=== PATIENT | male | born 1975 | race Caucasian/White ===

== ENCOUNTER 2017-09-10 21:04 | Emergency (ER) | payer OTHER ==
[~2017-09-10] VITALS: Ht 185.4 cm; Wt 90.7 kg
[~2017-09-10 21:04] MED LIST: LIDOCAINE VISC100 M1 MM; NOHOMEMEDICATIONS; ZPAK PO
[2017-09-10] MEDS ORDERED: HYDROCODONE-AP1 EAC6 PO (22:13)
[2017-09-10] MEDS ORDERED: KEFLEX500 M1 PO (22:13)
[2017-09-10 23:09] VITALS: BP 143/86
== END 2017-09-10 23:10 | disposition home or self-care (01) ==
LOC: ER 21:04
DX: S62.634B Displaced fracture of distal phalanx of right ring finger, initial encounter for open fracture (principal); F17.210 Nicotine dependence, cigarettes, uncomplicated; Z23 Encounter for immunization; W28.XXXA Contact with powered lawn mower, initial encounter; Y92.89 Other specified places as the place of occurrence of the external cause; Y93.89 Activity, other specified; Y99.8 Other external cause status

== ENCOUNTER 2017-09-15 13:47 | Emergency (ER) | payer OTHER ==
[~2017-09-15] VITALS: Ht 185.4 cm; Wt 90.7 kg
[~2017-09-15 13:47] MED LIST changes: +HYDROCODONE-AP1 EAC6 PO; +KEFLEX500 M1 PO
[2017-09-15 13:50] VITALS: BP 135/95
[2017-09-15] MEDS ORDERED: MORPHINE SULFAT15 M3 PO (15:05)
== END 2017-09-15 15:18 | disposition home or self-care (01) ==
LOC: ER 13:47
DX: Z76.0 Encounter for issue of repeat prescription (principal); M79.644 Pain in right finger(s); F17.210 Nicotine dependence, cigarettes, uncomplicated